=== PATIENT | male | born 1990 | race Caucasian/White ===

== ENCOUNTER 2017-08-11 13:31 | Emergency (ER) | payer OTHER ==
[2017-08-11] MEDS ORDERED: Lidocaine 1% 10 ML MDV INJECT ONE (14:35)
--- NOTE | 2017-08-11 15:09 | EDM.PDOC ---
ED HPI GENERAL MEDICAL PROBLEM - General Chief Complaint: Upper Extremity Injury/Pain Stated Complaint: INFECTED THUMB Time Seen by Provider: 08/11/17 13:45 Source of Information: Reports: Patient History Limitations: Reports: No Limitations - History of Present Illness INITIAL COMMENTS - FREE TEXT/NARRATIVE: The patient was cleaning up his yard at work and he had a nail poke him in the left thumb. That was a couple days ago and now he has a swollen thumb with erythema. He has no fever or chills. He has no chest pain or shortness of breath. He has no abdominal pain, nausea or vomiting. He his right handed. His tetanus is up to date. Onset: Sudden Duration: Day(s): (2) Location: Reports: Upper Extremity, Left (Thumb) Quality: Reports: Sharp Severity: Moderate Improves with: Reports: None Worsens with: Reports: None Associated Symptoms: Reports: No Other Symptoms Left Hand Pain Score (Numeric/FACES): 5 - Related Data Allergies Allergy/AdvReac Type Severity Reaction Status Date / Time almond Allergy Airway Verified 08/11/17 13:42 Tightness Home Meds: Home Meds Cephalexin [Keflex] 500 mg PO QID #40 capsule 08/11/17 [Rx] Past Medical History - Past Health History Medical/Surgical History: Denies Medical/Surgical History Social & Family History - Tobacco Use Smoking Status *Q: Current Every Day Smoker Years of Tobacco use: 7 Packs/Tins Daily: 0.5 Used Tobacco, but Quit: Yes Month/Year Tobacco Last Used: 4 years ago quit cigarettes - Caffeine Use Caffeine Use: Reports: Energy Drinks - Recreational Drug Use Recreational Drug Use: Yes Review of Systems - Review of Systems Review Of Systems: See Below Constitutional: Reports: No Symptoms Eyes: Reports: No Symptoms Ears: Reports: No Symptoms Nose: Reports: No Symptoms Mouth/Throat: Reports: No Symptoms Respiratory: Reports: No Symptoms Cardiovascular: Reports: No Symptoms GI/Abdominal: Reports: No Symptoms Genitourinary: Reports: No Symptoms Musculoskeletal: Reports: Other (Left thumb pain and edema) ED EXAM, GENERAL - Physical Exam Exam: See Below Exam Limited By: No Limitations General Appearance: Alert, No Apparent Distress Ears: Normal External Exam Nose: Normal Inspection Head: Atraumatic, Normocephalic Neck: Normal Inspection Respiratory/Chest: No Respiratory Distress Extremities: Other (Puncture wound to the pad of the left thumb with edema and erythema. Ecchymosis under the nail. Good sensation distally.) ED TRAUMA EXTREMITY PROCEDURES - I&D Site: Left thumb fellon Skin Prep: Other (Chlor-prep) Local Anesthesia: Lidocaine: 1% Plain Local Anesthetic Volume: 2cc Area Incised With: 11 Blade Drainage: Purulent, Bloody Probed to Break Up Loculations: Yes Complications: No Course - Vital Signs Last Recorded V/S: Last Vital Signs Temp 98.3 F 08/11/17 13:39 Pulse 89 08/11/17 13:39 Resp 18 08/11/17 13:39 BP 136/83 08/11/17 13:39 Pulse Ox 100 08/11/17 13:39 - Orders/Labs/Meds Orders: Active Orders 24 hr Category Date Time Status Fingers Thumb Lt FA [CR] Stat Exams 08/11/17 13:56 Taken Meds: Medications Discontinued Medications Generic Name Dose Route Start Last Admin Trade Name Freq PRN Reason Stop Dose Admin Lidocaine HCl 10 ml 08/11/17 14:35 08/11/17 14:41 Xylocaine 1% INJECT 08/11/17 14:36 10 ml ONETIME ONE Administration - Re-Assessments/Exams Free Text/Narrative Re-Assessment/Exam: 08/11/17 15:08 The patient's x-ray shows no FB or fracture. He has a fellon. I did a D&C and drained out some purulent bloody discharge. I will get him on keflex and I will have him follow up with Dr Weber. Departure - Departure Time of Disposition: 15:10 Disposition: Home, Self-Care 01 Condition: Good Clinical Impression: Felon of finger of left hand - Discharge Information Prescriptions: Cephalexin [Keflex] 500 mg PO QID #40 capsule Referrals: PCP,None [Primary Care Provider] - Garrett Weber MD [Consulting Physician] - 1 Week Additional Instructions: Keep the dressing on for 24 hours. After that soak your thumb in warm soapy water 2 times per day and apply antibiotic ointment after. Take the keflex 4 times per day for 10 days. Follow up with Dr Weber within a week. Please return if you are worse. - My Orders Last 24 Hours: My Active Orders 08/11/17 13:56 Fingers Thumb Lt FA [CR] Stat - Assessment/Plan Last 24 Hours: My Active Orders 08/11/17 13:56 Fingers Thumb Lt FA [CR] Stat
--- NOTE | 2017-08-13 07:56 | CR ---
Left thumb: Three views of the left thumb were obtained. Comparison: No prior study. Joint spaces are preserved. No fracture, dislocation or other bony abnormality is seen. Impression: 1. No abnormality is identified on left thumb exam. Diagnostic code #1
== END 2017-08-11 15:17 | disposition home or self-care (01) ==
LOC: JD.ED 13:31
DX: L03.012 Cellulitis of left finger (principal); F17.210 Nicotine dependence, cigarettes, uncomplicated; Z91.018 Allergy to other foods
CPT/HCPCS: 10060; 73140-26-FA; 73140-FA; 99283-25

== ENCOUNTER 2017-08-14 04:17 | Emergency (ER) | payer OTHER ==
[2017-08-14] MEDS ORDERED: Lidocaine 1% 10 ML MDV INJECT ONE (04:38)
[2017-08-14] MEDS ORDERED: Bupivacaine 0.5% 10 ML SDV INJECT ONE (04:38)
--- NOTE | 2017-08-14 04:45 | EDM.PDOC ---
ED HPI GENERAL MEDICAL PROBLEM - General Chief Complaint: Upper Extremity Injury/Pain Stated Complaint: THUMB ISSUES Time Seen by Provider: 08/14/17 04:29 Source of Information: Reports: Patient, Old Records History Limitations: Reports: No Limitations - History of Present Illness INITIAL COMMENTS - FREE TEXT/NARRATIVE: Medical records indicate that the patient was seen in this ED this past 08/11/2017 after puncturing his left thumb with a nail on or about Monday, 2017. He was found to have a felon. An I&D was performed. The patient was prescribed Keflex, that he was to take 4 times a day, and instructed to soak his thumb in warm soapy water twice a day, and apply an antibiotic ointment. The patient states that he is doing all of those things. He was to follow-up with Dr. Weber within a week. The patient now returns to the ED stating that his left thumb is swelling more, causing discoloration and lack of sensation to the tip of the thumb. No new drainage from the I&D site, however, the patient notices that the swelling has caused the I&D location to split open. No recent fever. The patient does not have a PCP. Left 1-Thumb Pain Score (Numeric/FACES): 8 - Related Data Allergies Allergy/AdvReac Type Severity Reaction Status Date / Time almond Allergy Airway Verified 08/14/17 04:27 Tightness Home Meds: Home Meds Cephalexin [Keflex] 500 mg PO QID #40 capsule 08/11/17 [Rx] Past Medical History - Past Health History Medical/Surgical History: Denies Medical/Surgical History Social & Family History - Tobacco Use Smoking Status *Q: Former Smoker Years of Tobacco use: 7 Packs/Tins Daily: 0.5 Used Tobacco, but Quit: Yes Month/Year Tobacco Last Used: 5 - Caffeine Use Caffeine Use: Reports: None - Recreational Drug Use Recreational Drug Use: Yes Review of Systems - Review of Systems Review Of Systems: ROS reveals no pertinent complaints other than HPI. ED EXAM, GENERAL - Physical Exam Exam: See Below Exam Limited By: No Limitations General Appearance: Alert, WD/WN, No Apparent Distress Extremities: Other (There is significant swelling to the left thumb, particularly distal to the IP joint. There is some erythema associated to the distal aspect of the thumb, but primarily there is ecchymosis and duskiness. The tip of the thumb has a dried blister, and there is an approximately 40% subungual hematoma. The skin of the distal half of the thumb is taut due to the swelling, leading to compromise of neurovascular status. No significant tenderness.) ED TRAUMA EXTREMITY PROCEDURES - I&D Site: Left thumb Skin Prep: Providone-Iodine (Betadine) Local Anesthesia: Lidocaine: 1% Plain (50:50 admixture) Local Anesthesia - Bupivicaine (Marcaine): 0.5% Plain (50:50 admixture) Local Anesthetic Volume: Other (8 ml) Area Incised With: 15 Blade Drainage: Purulent, Large Amount Probed to Break Up Loculations: No Packed With: None Sterile Dressing: None (Non-adhesive dressing) Complications: No Course - Vital Signs Last Recorded V/S: Last Vital Signs Temp 35.5 C 08/14/17 04:21 Pulse 79 08/14/17 04:21 Resp 18 08/14/17 04:21 BP 152/77 H 08/14/17 04:21 Pulse Ox 100 08/14/17 04:21 - Orders/Labs/Meds Meds: Medications Discontinued Medications Generic Name Dose Route Start Last Admin Trade Name Freq PRN Reason Stop Dose Admin Bupivacaine HCl 10 ml 08/14/17 04:38 Sensorcaine-Mpf 0.5% INJECT 08/14/17 04:39 ONETIME ONE Lidocaine HCl 10 ml 08/14/17 04:38 Xylocaine 1% INJECT 08/14/17 04:39 ONETIME ONE - Re-Assessments/Exams Free Text/Narrative Re-Assessment/Exam: 08/14/17 05:27 The left thumb was painted with Betadine. A digital block was performed using a 50:50 admixture of lidocaine 1% without epinephrine and bupivacaine 0.5% without epinephrine. Good anesthesia was obtained. The lateral aspect of the patient's thumb pad was incised, producing only blood, without pus. The end of the thumb, with the dry blister, was then incised, producing a large amount of pus. The thumb was expressed until only blood emanated. The thumb was then dressed per Krystina ISRAEL. I will have the patient continue to soak his thumb in warm soapy water twice a day, continue to take the Keflex 4 times a day, and have him follow-up with Dr. Weber this week. Departure - Departure Time of Disposition: 05:29 Disposition: Home, Self-Care 01 Condition: Fair Clinical Impression: Abscess of thumb, left - Discharge Information Referrals: PCP,None [Primary Care Provider] - Garrett Weber MD [Consulting Physician] - Forms: ED Department Discharge Additional Instructions: You were seen in the emergency room for continued swelling of your left thumb. Repeat incision and drainage was performed, producing a large amount of pus from the end of thumb. Continue to soak your left thumb in warm soapy water twice a day. Apply bacitracin ointment to the thumb before putting a fresh dressing on it. Continue to take the antibiotic Keflex every 6 hours, as previously prescribed. Follow-up with the hand surgeon Dr. Weber this week. If any other problems, please do not hesitate to return to the ER.
== END 2017-08-14 05:44 | disposition home or self-care (01) ==
LOC: JD.ED 04:17
DX: L02.512 Cutaneous abscess of left hand (principal); Z87.891 Personal history of nicotine dependence; Z91.018 Allergy to other foods
CPT/HCPCS: 10060; 99283-25

== ENCOUNTER 2018-09-23 04:16 | Emergency (ER) | payer OTHER ==
[2018-09-23] MEDS ORDERED: Bupivacaine 0.5% 10 ML SDV INJECT ONE (04:33)
[2018-09-23] MEDS ORDERED: Lidocaine 1% 10 ML MDV INJECT ONE (04:33)
--- NOTE | 2018-09-23 04:38 | EDM.PDOC ---
ED HPI GENERAL MEDICAL PROBLEM - General Chief Complaint: Laceration Stated Complaint: finger laceration Time Seen by Provider: 09/23/18 04:25 Source of Information: Reports: Patient, RN Notes Reviewed History Limitations: Reports: No Limitations - History of Present Illness INITIAL COMMENTS - FREE TEXT/NARRATIVE: The patient states that he smashed his right third finger injury truck door around 03:00. He presents with approximately 2 cm laceration along the crease of the volar aspect of his DIP joint. He also has a small bruise to the finger pad of the finger. He states that he is otherwise uninjured. The patient states that his last tetanus vaccination was around 2 years ago. The patient does not have a PCP. Right Finger-Middle Pain Score (Numeric/FACES): 5 - Related Data Allergies Allergy/AdvReac Type Severity Reaction Status Date / Time almond Allergy Airway Verified 09/23/18 04:20 Tightness Home Meds: Home Meds . [No Known Home Meds] 09/23/18 [History] Past Medical History Gastrointestinal History: Reports: PUD (treated) - Past Surgical History GI Surgical History: Reports: EGD (x 1) Social & Family History - Tobacco Use Smoking Status *Q: Former Smoker Tobacco Use Within Last Twelve Months: Smokeless Tobacco (Chews 1/2 can per day) Years of Tobacco use: 2 Packs/Tins Daily: 0.2 Month/Year Tobacco Last Used: Quit 2017 - Caffeine Use Caffeine Use: Reports: None - Alcohol Use Alcohol Use History: Yes Alcohol Use Frequency: Socially - Recreational Drug Use Recreational Drug Use: No - Living Situation & Occupation Living situation: Reports: Single, Alone Occupation: Employed ([employer]) ED ROS GENERAL - Review of Systems Review Of Systems: ROS reveals no pertinent complaints other than HPI. ED EXAM, SKIN/RASH Exam: See Below Exam Limited By: No Limitations General Appearance: Alert, WD/WN, No Apparent Distress Extremities: Other (There is an approximately 2 cm irregular laceration within the crease of the volar aspect of the right third DIP joint. The fingers dirty, but the wound appears to be relatively clean. Normal flexion - the flexor tendon does not appear to be injured. Small bruise noted to the finger pad of the third finger. Neurovascular status of the finger is intact.) ED SKIN PROCEDURES - Laceration/Wound Repair Right Digit - 3rd (Middle) Lac/Wound length In cm: 2.0 Appearance: Subcutaneous, Irregular, Clean Distal NVT: Neuro & Vascular Intact, No Tendon Injury Anesthetic Type: Digital Local Anesthesia - Lidocaine (Xylocaine): 1% Plain (50:50 admixture) Local Anesthesia - Bupivicaine (Marcaine): 0.5% Plain Local Anesthetic Volume: 5cc Skin Prep: Providone-Iodine (Betadine) Exploration/Debridement/Repair: Wound Explored, In a Bloodless Field, Explored to Base, No Foreign Material Found, Wound Margins Revised Closed with: Sutures Suture Size: 3-0 # of Sutures: 6 Suture Type: Nylon (Ethilon), Interrupted, Simple Sterile Dressing Applied: Provider (with a dorsal AlumaFoam splint in mild flexiion) Tetanus Status Addressed: Yes Complications: No Course - Vital Signs Last Recorded V/S: Last Vital Signs Temp 36.9 C 09/23/18 04:21 Pulse 81 09/23/18 04:21 Resp 18 09/23/18 04:21 BP 127/82 09/23/18 04:21 Pulse Ox 99 09/23/18 04:21 - Orders/Labs/Meds Meds: Medications Discontinued Medications Generic Name Dose Route Start Last Admin Trade Name Lamonte PRN Reason Stop Dose Admin Bupivacaine HCl 10 ml 09/23/18 04:33 09/23/18 04:42 Sensorcaine-Mpf 0.5% INJECT 09/23/18 04:34 10 ml ONETIME ONE Administration Lidocaine HCl 10 ml 09/23/18 04:33 09/23/18 04:41 Xylocaine 1% INJECT 09/23/18 04:34 10 ml ONETIME ONE Administration - Re-Assessments/Exams Free Text/Narrative Re-Assessment/Exam: 09/23/18 04:47 I placed a digital block to the patient's right 3rd finger using a 50:50 admixture of bupivacaine 0.5% without epinephrine and lidocaine 1% without epinephrine. The patient tolerated procedure well. 09/23/18 05:33 The patient's wound was closed with 6 simple interrupted sutures using 3-0 Ethilon, to good effect. The patient tolerated the procedure well. The finger was then splinted in mild flexure with a dorsal AlumaFoam splint, with a nonstick dressing on the volar aspect. I recommended to the patient that he remove the splint daily, when he bathes, then reapply it. The sutures should be ready for removal by 10/01/2018. The patient tells me that he will be in the [place] area at that time. I recommended that he go to the [place] ED, or walk-in clinic, if they have one, to have the sutures removed. Departure - Departure Time of Disposition: 05:34 Disposition: Home, Self-Care 01 Condition: Good Clinical Impression: Laceration of right middle finger - Discharge Information *PRESCRIPTION DRUG MONITORING PROGRAM REVIEWED*: Not Applicable *COPY OF PRESCRIPTION DRUG MONITORING REPORT IN PATIENT KAUSHAL: Not Applicable Referrals: PCP,None [Primary Care Provider] - Forms: ED Department Discharge Additional Instructions: You were seen in the emergency room after your right middle finger was cut in a truck door. Your wound was closed with 6 sutures. An AlumaFoam splint was applied. Take [id number] ibuprofen as needed for discomfort. Keep the finger clean with ordinary soap and water when you bathe, daily. Pat the wound dry, then reapply the AlumaFoam splint along with a piece of nonstick dressing, as demonstrated in the ER. The sutures should be ready for removal by 10/01/2018. This can be done at a walk-in clinic or an ER. Do not try to remove them yourself. If any other problems, please do not hesitate to return to the ER.
== END 2018-09-23 05:41 | disposition home or self-care (01) ==
LOC: JD.ED 04:16
DX: S61.212A Laceration without foreign body of right middle finger without damage to nail, initial encounter (principal); Z91.018 Allergy to other foods; Z87.891 Personal history of nicotine dependence; W23.0XXA Caught, crushed, jammed, or pinched between moving objects, initial encounter
CPT/HCPCS: 12001; 99283; J2001; J3490; 99282